=== PATIENT | male | born 1975 | race African-American/Black ===

== ENCOUNTER 2019-09-12 12:40 | Emergency (ER) | payer MEDICAID ==
[~2019-09-12] VITALS: Ht 182.9 cm; Wt 82.0 kg
[2019-09-12] MEDS ORDERED: ACETAMINOPHEN WITH CODEINE 300/30MG TABLET PO ONE (15:45)
[2019-09-12 15:54] LABS: BASOPHILS % 0.5 % (0.0-2.0); EOSINOPHILS % 0.7 % (0.0-5.0); HEMATOCRIT. 43.5 % (42.0-52.0); HEMOGLOBIN. 14.6 g/dL (14.0-18.0); LYMPHOCYTES % 13.3 % (20.0-50.0); MEAN CORPUSCULAR HEMOGLOBIN 31.9 pg (28.0-32.0); MEAN CORPUSCULAR VOLUME 94.7 fL (80.0-94.0); MONOCYTES % 10.1 % (2.0-8.0); NEUTROPHILS % 75.4 % (40.0-76.0); PLATELET 171 x1000/uL (130-400); RED BLOOD CELL COUNT 4.59 mill/uL (4.7-6.1); RED CELL DISTRIBUTION WIDTH 14.1 % (11.6-14.6)
[2019-09-12 16:00] VITALS: BP 147/80
[2019-09-12 16:10] LABS: CHLORIDE 107 mEq/L (98-107)
== END 2019-09-12 18:30 | disposition home or self-care (01) ==
LOC: ER 12:40
DX: S00.03XA Contusion of scalp, initial encounter (principal); S93.401A Sprain of unspecified ligament of right ankle, initial encounter; S80.211A Abrasion, right knee, initial encounter; M25.572 Pain in left ankle and joints of left foot; R07.89 Other chest pain; Z87.828 Personal history of other (healed) physical injury and trauma; V43.52XA Car driver injured in collision with other type car in traffic accident, initial encounter; Y93.89 Activity, other specified; Y92.488 Other paved roadways as the place of occurrence of the external cause
CPT/HCPCS: 36415; 71045; 73562; 73610; 73630; 80053; 85025; 93005; 99285